=== PATIENT | male | born 1960 | race Caucasian/White ===

== ENCOUNTER 2022-05-06 13:18 | Emergency (ER) | payer OTHER ==
[~2022-05-06] VITALS: Ht 185.4 cm; Wt 75.3 kg
--- NOTE | 2022-05-06 13:22 | NUR ---
pt biba draw sheet to bed 9
[2022-05-06 13:23] VITALS: BP 113/67
--- NOTE | 2022-05-06 13:29 | NUR ---
65 y/o male biba [place] bus [place], pt was seen previously at [facility] and dx with rib fx in relation to fall yesterday [place] train tracks. pt was dx and found at bus stop c/o general weakness. pt bp at scene was 80/40 and tachycardic @125. amr gave 400ml of NS through IV with a new HR of 90 and increased BP. a&ox4, unable to ambulate at this time due to gen weak. pt states he has 75/10 pain in his spleen and points towards left hip. accucheck en route: 100 pmh: dm2, bipolar, epilepsy nka med: denies
[2022-05-06] MEDS ORDERED: NACL 0.9% 1,000 ML IV ONE (14:00)
[2022-05-06] MEDS ORDERED: KETOROLAC 15 MG/ML VIAL IVP ONE (14:00)
[2022-05-06 14:22] LABS: BASOPHILS # (AUTO) 0.1 K/uL (0.00-0.22); BASOPHILS % (AUTO) 1.2 % (0.0-2.0); EOSINOPHILS % (AUTO) 0.3 % (0.0-4.0); HEMOGLOBIN 12.9 g/dL (12.0-18.0); LYMPHOCYTES # (AUTO) 1.7 K/uL (2.0-11.5); MEAN CORPUSCULAR HEMOGLOBIN 36 pg (27-31); MEAN CORPUSCULAR HGB CONC 34 g/dL (33-37); MEAN CORPUSCULAR VOLUME 106.1 fL (80-94); MONOCYTES # (AUTO) 0.5 K/uL (0.8-1.0); MONOCYTES % (AUTO) 11.9 % (1.7-9.3); NEUTROPHILS # (AUTO) 2.1 K/uL (1.8-7.7); NEUTROPHILS % (AUTO) 48.6 % (42.2-75.2); PLATELET COUNT (AUTO) 215 K/uL (140-450); RED BLOOD CELL COUNT(AUTO) 3.58 MIL/uL (4.20-6.10); RED CELL DISTRIBUTION WIDTH 11.9 % (11.6-13.7); WHITE BLOOD COUNT (AUTO) 4.4 K/uL (4.8-10.8)
[2022-05-06 14:42] LABS: ALBUMIN 3.5 g/dL (3.4-5.0); ANION GAP 10.3 (8-16); CARBON DIOXIDE 26.5 mmol/L (21-32); CREATININE 0.9 mg/dL (0.6-1.3); POTASSIUM 3.8 mmol/L (3.5-5.1); TOTAL BILIRUBIN 0.6 mg/dL (0.0-1.0)
[2022-05-06 15:18] LABS: BARBITURATE, URINE NEGATIVE ng/ml (NEG <=200); BENZODIAZEPINE, URINE NEGATIVE ng/mL (NEG <=200); CANNABINOID, URINE NEGATIVE ng/mL (NEG <=50); COCAINE, URINE NEGATIVE ng/mL (NEG <=300); OPIATE, URINE NEGATIVE ng/mL (NEG <=2000); PHENCYCLIDINE SCREEN,URINE NEGATIVE ng/mL (NEG <=25)
[2022-05-06] MEDS ORDERED: IBUP-2213 PO (15:35)
[2022-05-06] MEDS ORDERED: ACET-10509 PO (15:35)
--- NOTE | 2022-05-10 09:39 | NUR ---
LATE ENTRY -- CONFIRMED WITH NURSE NS INFUSION COMPLETED AT 1512 05/06/22
== END 2022-05-06 15:40 | disposition home or self-care (01) ==
LOC: MED 13:18
DX: R07.81 Pleurodynia (principal); R10.33 Periumbilical pain; F17.210 Nicotine dependence, cigarettes, uncomplicated; E11.9 Type 2 diabetes mellitus without complications; F31.9 Bipolar disorder, unspecified; Z86.69 Personal history of other diseases of the nervous system and sense organs; Z98.890 Other specified postprocedural states
CPT/HCPCS: 36415; 71101; 80053; 80305; 83690; 84484; 85025; 93005; 96361; 96374; 99285; J1885; J7030

== ENCOUNTER 2022-09-12 13:18 | Emergency (ER) | payer OTHER ==
[~2022-09-12] VITALS: Ht 170.2 cm; Wt 62.6 kg
[~2022-09-12 13:18] MED LIST: ACET-10509 PO; IBUP-2213 PO
[2022-09-12 13:23] VITALS: BP 125/75
[2022-09-12] MEDS ORDERED: KETOROLAC 30 MG/ML VIAL IM ONE (14:00)
[2022-09-12] MEDS ORDERED: IBUP-2213 PO (14:17)
[2022-09-12] MEDS ORDERED: ACET-10509 PO (14:17)
--- NOTE | 2022-09-12 14:20 | NUR ---
PT WHEELED TO RADIOLOGY FOR XRAY
--- NOTE | 2022-09-12 14:30 | NUR ---
PT WHEELED TO THE LOBBY FROM RADIOLOGY.
[2022-09-12] MEDS ORDERED: IBUPROFEN 600 MG TAB PO ONE (14:40)
--- NOTE | 2022-09-12 16:00 | NUR ---
Patient discharged with v/s stable. Written and verbal after care instructions given and explained. Patient alert, oriented and verbalized understanding of instructions. Ambulatory with steady gait. All questions addressed prior to discharge. ID band removed. Patient advised to follow up with PMD. Rx of TYLENOL AND IBUPROFEN given. Patient educated on indication of medication including possible reaction and side effects. Opportunity to ask questions provided and answered.
== END 2022-09-12 16:00 | disposition home or self-care (01) ==
LOC: MED 13:18
DX: J06.9 Acute upper respiratory infection, unspecified (principal); Z20.822 Contact with and (suspected) exposure to COVID-19; E11.9 Type 2 diabetes mellitus without complications; G40.909 Epilepsy, unspecified, not intractable, without status epilepticus; Z79.4 Long term (current) use of insulin; Z79.899 Other long term (current) drug therapy
CPT/HCPCS: 71045; 99284

== ENCOUNTER 2022-09-20 18:46 | Emergency (ER) | payer OTHER ==
[~2022-09-20] VITALS: Ht 167.6 cm; Wt 70.3 kg
[2022-09-20 18:50] VITALS: BP 122/82
[2022-09-20] MEDS ORDERED: NACL 0.9% 1,000 ML IV ONE (23:25)
--- NOTE | 2022-09-20 23:39 | NUR ---
PT TAKEN TO RADIOLOGY
--- NOTE | 2022-09-20 23:41 | NUR ---
PT RETURN FROM RADIOLOGY
--- NOTE | 2022-09-20 23:41 | NUR ---
Annabel cruz in [facility] - 09/20/22 at 2341 by RAZ PT RETURN FROM CT
[2022-09-20 23:54] LABS: BASOPHILS # (AUTO) 0.1 K/uL (0.00-0.22); BASOPHILS % (AUTO) 1.2 % (0.0-2.0); EOSINOPHILS # (AUTO) 0.2 K/uL (0-0.4); EOSINOPHILS % (AUTO) 3.2 % (0.0-4.0); HEMATOCRIT 40.2 % (36-52); HEMOGLOBIN 13.9 g/dL (12.0-18.0); LYMPHOCYTES # (AUTO) 2.8 K/uL (2.0-11.5); LYMPHOCYTES % (AUTO) 47.6 % (20.5-51.1); MEAN CORPUSCULAR HEMOGLOBIN 33 pg (27-31); MEAN CORPUSCULAR HGB CONC 35 g/dL (33-37); MEAN CORPUSCULAR VOLUME 94.6 fL (80-94); MONOCYTES # (AUTO) 0.4 K/uL (0.8-1.0); MONOCYTES % (AUTO) 7.4 % (1.7-9.3); NEUTROPHILS # (AUTO) 2.4 K/uL (1.8-7.7); NEUTROPHILS % (AUTO) 40.6 % (42.2-75.2); PLATELET COUNT (AUTO) 404 K/uL (140-450); RED BLOOD CELL COUNT(AUTO) 4.25 MIL/uL (4.20-6.10); WHITE BLOOD COUNT (AUTO) 5.9 K/uL (4.8-10.8)
[2022-09-21 00:35] LABS: ALBUMIN 3.2 g/dL (3.4-5.0); CARBON DIOXIDE 26.7 mmol/L (21-32); CREATININE 0.9 mg/dL (0.6-1.3); POTASSIUM 3.7 mmol/L (3.5-5.1); TOTAL BILIRUBIN 0.6 mg/dL (0.0-1.0)
[2022-09-21 01:45] VITALS: BP 122/82
--- NOTE | 2022-09-21 01:45 | NUR ---
Patient discharged with v/s stable. Written and verbal after care instructions given and explained. Patient verbalized understanding. Ambulatory with steady gait. All questions addressed prior to discharge. Advised to follow up with PMD.
[2022-09-21] MEDS ORDERED: LOPE-143 PO (10:30)
[2022-09-21] MEDS ORDERED: RISP0.5T3 PO (10:30)
[2022-09-21] MEDS ORDERED: THO25 PO (10:30)
[2022-09-21] MEDS ORDERED: DIVA250E1 PO (10:30)
== END 2022-09-21 01:45 | disposition home or self-care (01) ==
LOC: MED 18:46
DX: E86.0 Dehydration (principal); R53.1 Weakness; E11.9 Type 2 diabetes mellitus without complications; I10 Essential (primary) hypertension; G40.909 Epilepsy, unspecified, not intractable, without status epilepticus; F20.9 Schizophrenia, unspecified; F32.9 Major depressive disorder, single episode, unspecified; Z79.899 Other long term (current) drug therapy; Z98.890 Other specified postprocedural states
CPT/HCPCS: 36415; 71045; 80053; 83605; 85025; 87040; 96360; 99284; J7030

== ENCOUNTER 2022-09-21 08:31 | Emergency (ER) | payer OTHER ==
[~2022-09-21] VITALS: Ht 177.8 cm; Wt 74.8 kg
[2022-09-21 08:49] VITALS: BP 116/57
--- NOTE | 2022-09-21 08:50 | NUR ---
pt taken to shower
--- NOTE | 2022-09-21 08:58 | NUR ---
BIB MEDIC , DIARRHEA X5 , INCONTINENT, DENIES ABDO PAIN, N/V, FEVER OR CHILLS
--- NOTE | 2022-09-21 10:09 | NUR ---
PATIENT PRESENTS TO ED WITH DIARREHA . PT STATES HE IS HOMELESS. DENIES N/V/D; SKIN IS PINK/WARM/DRY; AAOX4 WITH EVEN AND STEADY GAIT; LUNGS CLEAR BL; HR EVEN AND REGULAR; PT DENIES ANY FEVER, CP, SOB, OR COUGH AT THIS TIME; PATIENT STATES PAIN OF 0/10 AT THIS TIME; VSS; PATIENT POSITIONED FOR COMFORT; HOB ELEVATED; BEDRAILS UP X2; BED DOWN. ER MD MADE AWARE OF PT STATUS.
[2022-09-21] MEDS ORDERED: RISP0.5T3 PO (10:30)
[2022-09-21] MEDS ORDERED: DIVA250E1 PO (10:30)
[2022-09-21] MEDS ORDERED: THO25 PO (10:30)
[2022-09-21] MEDS ORDERED: LOPE-143 PO (10:30)
--- NOTE | 2022-09-21 11:08 | NUR ---
Patient discharged with v/s stable. Written and verbal after care instructions given and explained. Patient verbalized understanding. Ambulatory with steady gait. All questions addressed prior to discharge. Advised to follow up with PMD. Pt was offered food, and drink. Pt changed into approritate attire. All of pts belongings returned to pt. Pt was offered an uber to his desitnation.
[2022-09-21 11:15] VITALS: BP 111/65
== END 2022-09-21 11:15 | disposition home or self-care (01) ==
LOC: MED 08:31
DX: K52.9 Noninfective gastroenteritis and colitis, unspecified (principal); F20.9 Schizophrenia, unspecified; F31.9 Bipolar disorder, unspecified; J45.909 Unspecified asthma, uncomplicated; F17.290 Nicotine dependence, other tobacco product, uncomplicated; I10 Essential (primary) hypertension; G40.909 Epilepsy, unspecified, not intractable, without status epilepticus; Z79.899 Other long term (current) drug therapy
CPT/HCPCS: 99283